=== PATIENT | female | born 1985 | race Caucasian/White ===

== ENCOUNTER → 2021-09-29 | Outpatient (CLI) | payer MEDICAID, OTHER ==
[2021-09-29 10:12] LABS: BASO % 0.3 % (0.0-1.0); EOS # 0.1 10^3/uL (0.0-0.5); EOS % 1.6 % (0.0-3.0); HEMATOCRIT 40.4 % (36.0-47.0); HEMOGLOBIN 13.2 g/dl (12.0-15.5); LYMPH # 1.9 10^3/uL (1.5-5.0); LYMPH % 21.4 % (24.0-44.0); MEAN CORPUSCULAR HEMOGLOBIN 30.3 pg (27.0-33.0); MEAN CORPUSCULAR HGB CONC 32.7 g/dl (32.0-36.5); MEAN CORPUSCULAR VOLUME 92.9 fl (80.0-96.0); MONO # 0.5 10^3/uL (0.0-0.8); MONO % 5.7 % (2.0-8.0); NEUTROPHILS # 6.2 10^3/uL (1.5-8.5); NEUTROPHILS % 70.5 % (36.0-66.0); PLATELET COUNT, AUTOMATED 258 10^3/uL (150-450); RED BLOOD COUNT 4.35 10^6/uL (4.00-5.40); WHITE BLOOD COUNT 8.8 10^3/uL (4.0-10.0)
[2021-09-29 10:48] LABS: ALBUMIN 3.6 GM/DL (3.2-5.2); ALT/SGPT 33 U/L (12-78); BILIRUBIN,TOTAL 0.3 MG/DL (0.2-1.0); BLOOD UREA NITROGEN 12 MG/DL (7-18); CALCIUM LEVEL 9.1 MG/DL (8.5-10.1); CARBON DIOXIDE LEVEL 25 MEQ/L (21-32); CHLORIDE LEVEL 108 MEQ/L (98-107); CHOLESTEROL LEVEL 167 MG/DL (<200); CHOLESTEROL RISK RATIO 4.638 (<5); CREATININE FOR GFR 0.73 MG/DL (0.55-1.30); GLOMERULAR FILTRATION RATE > 60.0 (>60); GLUCOSE, FASTING 79 MG/DL (70-100); HDL CHOLESTEROL 36 MG/DL (>40); LDL CHOLESTEROL 104 MG/DL (<100); NON-HDL-C 131 MG/DL; POTASSIUM SERUM 4.4 MEQ/L (3.5-5.1); SODIUM LEVEL 139 MEQ/L (136-145); THYROID STIMULATING HORMONE 0.779 uIU/ML (0.358-3.740); TOTAL PROTEIN 7.3 GM/DL (6.4-8.2); TRIGLYCERIDES LEVEL 135 MG/DL (<150)
== END ==
LOC: M LAB 09:13
PROVIDERS: ATTEND Physician Assistant
DX: E03.9 Hypothyroidism, unspecified (principal)

== ENCOUNTER 2022-07-06 09:19 | Emergency (ER) | payer OTHER ==
[~2022-07-06] VITALS: Ht 167.6 cm; Wt 83.7 kg
[2022-07-06] MEDS ORDERED: LEVO25TA5 (09:29)
[2022-07-06] MEDS ORDERED: BUPR300T92 (09:29)
[2022-07-06 10:33] LABS: RSV AMPLIFICATION NEGATIVE (NEGATIVE)
[2022-07-06] MEDS ORDERED: NS 1,000 ML IV ONE (11:55)
[2022-07-06 12:41] LABS: BASO % 0.4 % (0.0-1.0); EOS # 0.1 10^3/uL (0.0-0.5); EOS % 1.6 % (0.0-3.0); HEMATOCRIT 43.2 % (36.0-47.0); HEMOGLOBIN 14.1 g/dl (12.0-15.5); LYMPH # 1.9 10^3/uL (1.5-5.0); LYMPH % 26.3 % (24.0-44.0); MEAN CORPUSCULAR HEMOGLOBIN 31.4 pg (27.0-33.0); MEAN CORPUSCULAR HGB CONC 32.6 g/dl (32.0-36.5); MEAN CORPUSCULAR VOLUME 96.2 fl (80.0-96.0); MONO # 0.5 10^3/uL (0.0-0.8); MONO % 6.9 % (2.0-8.0); NEUTROPHILS # 4.8 10^3/uL (1.5-8.5); NEUTROPHILS % 64.4 % (36.0-66.0); PLATELET COUNT, AUTOMATED 236 10^3/uL (150-450); RED BLOOD COUNT 4.49 10^6/uL (4.00-5.40); WHITE BLOOD COUNT 7.4 10^3/uL (4.0-10.0)
[2022-07-06 13:13] LABS: ALT/SGPT 25 U/L (12-78); BILIRUBIN,DIRECT 0.2 MG/DL (0.0-0.2); BILIRUBIN,TOTAL 0.5 MG/DL (0.2-1.0); BLOOD UREA NITROGEN 10 MG/DL (7-18); CARBON DIOXIDE LEVEL 28 MEQ/L (21-32); CHLORIDE LEVEL 106 MEQ/L (98-107); CREATININE FOR GFR 0.76 MG/DL (0.55-1.30); GLOMERULAR FILTRATION RATE > 60.0 (>60); GLUCOSE, FASTING 84 MG/DL (70-100); POTASSIUM SERUM 3.8 MEQ/L (3.5-5.1); SODIUM LEVEL 138 MEQ/L (136-145); TOTAL PROTEIN 7.8 GM/DL (6.4-8.2)
[2022-07-06] MEDS ORDERED: KETOROLAC 30 MG/ML 1ML VIAL IV ONE (13:30)
[2022-07-06 13:39] LABS: HCG, SERUM QUALITATIVE NEGATIVE (NEGATIVE)
[2022-07-06] MEDS ORDERED: ISOVUE-370 76% 100ML VIAL As Ordered ONE (13:42)
[2022-07-06] MEDS ORDERED: KETO10TAB PO (14:26)
[2022-07-06] MEDS ORDERED: PHEN-372 PO (14:26)
[2022-07-06] MEDS ORDERED: NITR1CAP11 PO (14:26)
[2022-07-06 15:14] VITALS: BP 128/84
== END 2022-07-06 15:16 | disposition home or self-care (01) ==
LOC: M ED 09:19
DX: N39.0 Urinary tract infection, site not specified (principal); M54.50 Low back pain, unspecified; Z79.899 Other long term (current) drug therapy
CPT/HCPCS: 74177; 76775; 80048; 80076; 81000; 81015; 84703; 85025; 87088; 87186; 87631; 96361; 96374; 99284; J1885; Q9967

== ENCOUNTER → 2022-08-31 | Outpatient (REF) | payer OTHER ==
[~2022-08-31] MED LIST: BUPR300T92; KETO10TAB PO; LEVO25TA5; NITR1CAP11 PO; PHEN-372 PO
== END ==
LOC: M LAB REF 16:49
PROVIDERS: ATTEND Physician Assistant
DX: Z01.419 Encounter for gynecological examination (general) (routine) without abnormal findings (principal)

== ENCOUNTER 2023-01-30 22:48 | Emergency (ER) | payer MEDICAID, OTHER ==
[~2023-01-30] VITALS: Ht 167.6 cm; Wt 77.3 kg
[2023-01-30 22:49] VITALS: BP 149/82
== END 2023-01-31 00:32 | disposition left against medical advice (07) ==
LOC: M ED 22:48
DX: Z53.21 Procedure and treatment not carried out due to patient leaving prior to being seen by health care provider (principal)

== ENCOUNTER → 2023-02-01 | Outpatient (REF) | payer OTHER ==
[~2023-02-01] MED LIST changes: +AMOX500C PO; +CIPR-249 PO; +MEDR4TAB PO; +METR-265 PO; +OMEP40CA4 PO; +PENI500T PO
== END ==
LOC: M LAB REF 16:21
PROVIDERS: ATTEND Physician Assistant
DX: R10.32 Left lower quadrant pain (principal); R12 Heartburn; K59.00 Constipation, unspecified; Q63.2 Ectopic kidney

== ENCOUNTER 2023-02-02 01:26 | Emergency (ER) | payer OTHER ==
[~2023-02-02] VITALS: Ht 167.6 cm; Wt 81.6 kg
[~2023-02-02 01:26] MED LIST changes: -AMOX500C PO; -CIPR-249 PO; -MEDR4TAB PO; -METR-265 PO; -OMEP40CA4 PO; -PENI500T PO
[2023-02-02] MEDS ORDERED: MEDR4TAB PO (01:31)
[2023-02-02] MEDS ORDERED: AMOX500C PO ×2 (01:31)
[2023-02-02] MEDS ORDERED: NS 1,000 ML IV ONE (02:00)
[2023-02-02 02:18] LABS: BASO % 0.2 % (0.0-1.0); EOS # 0.1 10^3/uL (0.0-0.5); EOS % 0.9 % (0.0-3.0); HEMATOCRIT 41.2 % (36.0-47.0); LYMPH # 3.6 10^3/uL (1.5-5.0); MEAN CORPUSCULAR HEMOGLOBIN 31.3 pg (27.0-33.0); MONO # 0.6 10^3/uL (0.0-0.8); MONO % 4.9 % (2.0-8.0); NEUTROPHILS # 8.5 10^3/uL (1.5-8.5); NEUTROPHILS % 65.5 % (36.0-66.0); PLATELET COUNT, AUTOMATED 314 10^3/uL (150-450); RED BLOOD COUNT 4.48 10^6/uL (4.00-5.40)
[2023-02-02 02:39] LABS: LIPASE 34 U/L (12-53)
[2023-02-02 02:41] LABS: ALBUMIN 3.9 G/DL (3.2-5.2); ALKALINE PHOSPHATASE 67 U/L (46-116); ALT/SGPT 29 U/L (7.0-40); AST/SGOT 26 U/L (<34); BILIRUBIN,TOTAL 0.2 MG/DL (0.3-1.2); BLOOD UREA NITROGEN 10 MG/DL (9-23); CALCIUM LEVEL 8.6 MG/DL (8.5-10.1); CARBON DIOXIDE LEVEL 27 MMOL/L (20-31); CHLORIDE LEVEL 107 MMOL/L (98-107); CREATININE FOR GFR 0.75 MG/DL (0.55-1.30); GLOMERULAR FILTRATION RATE > 60.0 (>60); GLUCOSE, FASTING 85 MG/DL (60-100); SODIUM LEVEL 142 MMOL/L (136-145); TOTAL PROTEIN 7.3 G/DL (5.7-8.2)
[2023-02-02] MEDS ORDERED: ONDANSETRON 4MG 2ML VIAL IV ONE (03:00)
[2023-02-02] MEDS ORDERED: traMADol 50 MG TAB PO ONE (03:00)
[2023-02-02] MEDS ORDERED: GASTROGRAFIN SOLUTION 30ML As Ordered ONE (03:21)
[2023-02-02] MEDS ORDERED: ISOVUE-370 76% 100ML VIAL As Ordered ONE (03:28)
[2023-02-02] MEDS: GASTROGRAFIN SOLUTION 30ML PO SCH ×2 (03:35→04:10)
[2023-02-02] MEDS ORDERED: CIPROFLOXACIN 500MG TABLET PO ONE (07:10)
[2023-02-02] MEDS ORDERED: metroNIDAZOLE (FLAGYL) 500MG TABLET PO ONE (07:10)
[2023-02-02] MEDS ORDERED: CIPR-249 PO (07:14)
[2023-02-02] MEDS ORDERED: METR-265 PO (07:14)
[2023-02-02 07:27] VITALS: BP 134/80
== END 2023-02-02 07:34 | disposition home or self-care (01) ==
LOC: M ED 01:26
DX: K52.9 Noninfective gastroenteritis and colitis, unspecified (principal); F32.9 Major depressive disorder, single episode, unspecified; E03.9 Hypothyroidism, unspecified; Z79.890 Hormone replacement therapy; Z79.899 Other long term (current) drug therapy
CPT/HCPCS: 74177; 80053; 81001; 83690; 85025; 86850; 86900; 86901; 96374; 99284; J2405; Q9967

== ENCOUNTER 2023-02-07 11:10 | Emergency (ER) | payer OTHER, SELFPAY ==
[~2023-02-07] VITALS: Ht 167.6 cm; Wt 80.0 kg
[~2023-02-07 11:10] MED LIST changes: +AMOX500C PO; +CIPR-249 PO; +MEDR4TAB PO; +METR-265 PO
[2023-02-07] MEDS ORDERED: NS 1,000 ML IV ONE (11:45)
[2023-02-07] MEDS ORDERED: MORPHINE 4 MG/ML 1ML VIAL IV ONE ×2 (11:45→13:20)
[2023-02-07] MEDS ORDERED: PIPERACILLIN/TAZOBACTAM SOD 3.375 GM in D5W MINI-BAG PLUS 50 ML IV ONE (12:00)
[2023-02-07 12:24] LABS: BASO % 0.4 % (0.0-1.0); EOS # 0.2 10^3/uL (0.0-0.5); EOS % 1.4 % (0.0-3.0); HEMATOCRIT 42.1 % (36.0-47.0); HEMOGLOBIN 13.8 g/dl (12.0-15.5); LYMPH # 2.1 10^3/uL (1.5-5.0); LYMPH % 18.6 % (24.0-44.0); MEAN CORPUSCULAR HEMOGLOBIN 30.9 pg (27.0-33.0); MEAN CORPUSCULAR HGB CONC 32.8 g/dl (32.0-36.5); MEAN CORPUSCULAR VOLUME 94.2 fl (80.0-96.0); MONO # 0.6 10^3/uL (0.0-0.8); MONO % 4.9 % (2.0-8.0); NEUTROPHILS # 8.4 10^3/uL (1.5-8.5); NEUTROPHILS % 74.3 % (36.0-66.0); PLATELET COUNT, AUTOMATED 247 10^3/uL (150-450); RED BLOOD COUNT 4.47 10^6/uL (4.00-5.40); WHITE BLOOD COUNT 11.3 10^3/uL (4.0-10.0)
[2023-02-07 12:53] LABS: LIPASE 24 U/L (12-53)
[2023-02-07 12:55] LABS: ALBUMIN 3.8 G/DL (3.2-5.2); ALKALINE PHOSPHATASE 67 U/L (46-116); ALT/SGPT 35 U/L (7.0-40); AST/SGOT 20 U/L (<34); BILIRUBIN,DIRECT < 0.1 MG/DL (<0.4); BILIRUBIN,TOTAL 0.3 MG/DL (0.3-1.2)
[2023-02-07] MEDS ORDERED: ISOVUE-370 76% 100ML VIAL As Ordered ONE (13:14)
[2023-02-07] MEDS ORDERED: ONDANSETRON 4MG 2ML VIAL IV ONE (13:20)
[2023-02-07] MEDS ORDERED: PANTOPRAZOLE 40MG VIAL IV ONE (13:40)
[2023-02-07] MEDS ORDERED: GI COCKTAIL 50ML BTL(HYOSCYAMINE/MAALOX/LIDOCAINE VISCOUS)(1:3:1) PO ONE (16:15)
[2023-02-07 16:24] LABS: CK-MB VALUE MASS < 1.0 NG/ML (<3.6)
[2023-02-07 16:26] LABS: CPK CREATINE PHOSPHOKINASE 94 U/L (34-145); MB/CK RELATIVE INDEX 1.06 (< OR =4)
[2023-02-07] MEDS ORDERED: PENI500T PO (17:39)
[2023-02-07] MEDS ORDERED: OMEP40CA4 PO (17:39)
[2023-02-07 18:43] VITALS: BP 120/75
== END 2023-02-07 18:55 | disposition home or self-care (01) ==
LOC: M ED 11:10
DX: J02.0 Streptococcal pharyngitis (principal); K21.9 Gastro-esophageal reflux disease without esophagitis; R10.9 Unspecified abdominal pain; R11.0 Nausea; E03.9 Hypothyroidism, unspecified; F17.210 Nicotine dependence, cigarettes, uncomplicated; K59.00 Constipation, unspecified; Z79.899 Other long term (current) drug therapy
CPT/HCPCS: 71046; 71275; 74177; 76705; 76856; 80047; 80076; 81001; 82550; 82553; 83605; 83690; 84702; 85025; 87040; 87486; 87581; 87633; 87798; 87880; 93005; 93976; 96365; 96375; 96376; 99284; C9113; J2405; J2543; Q9967

== ENCOUNTER 2023-02-23 10:09 | Emergency (ER) | payer OTHER ==
[~2023-02-23] VITALS: Ht 167.6 cm; Wt 79.5 kg
[~2023-02-23 10:09] MED LIST changes: -BUPR300T92; +BUPR300T92 PO; -LEVO25TA5; +LEVO25TA5 PO; +OMEP40CA4 PO; +PENI500T PO
[2023-02-23 11:37] LABS: URINE PREG TEST NEGATIVE (NEGATIVE)
[2023-02-23] MEDS ORDERED: KETOROLAC 30 MG/ML 1ML VIAL IV ONE (12:10)
[2023-02-23 12:18] LABS: BASO % 0.4 % (0.0-1.0); EOS # 0.2 10^3/uL (0.0-0.5); EOS % 2.1 % (0.0-3.0); HEMATOCRIT 40.9 % (36.0-47.0); HEMOGLOBIN 13.7 g/dl (12.0-15.5); LYMPH # 2.1 10^3/uL (1.5-5.0); LYMPH % 24.3 % (24.0-44.0); MEAN CORPUSCULAR HEMOGLOBIN 31.1 pg (27.0-33.0); MEAN CORPUSCULAR HGB CONC 33.5 g/dl (32.0-36.5); MONO # 0.5 10^3/uL (0.0-0.8); NEUTROPHILS # 5.8 10^3/uL (1.5-8.5); PLATELET COUNT, AUTOMATED 265 10^3/uL (150-450); WHITE BLOOD COUNT 8.6 10^3/uL (4.0-10.0)
[2023-02-23 13:07] LABS: HCG, SERUM QUALITATIVE NEGATIVE (NEGATIVE)
[2023-02-23] MEDS ORDERED: METR0.7526 TOP (14:51)
[2023-02-23] MEDS ORDERED: MACR100C43 PO (14:51)
[2023-02-23 14:59] VITALS: BP 110/70
[2023-02-23 19:57] LABS: GC DNA AMPLIFICATION NEGATIVE (NEGATIVE)
== END 2023-02-23 15:09 | disposition home or self-care (01) ==
LOC: M ED 10:09
DX: N39.0 Urinary tract infection, site not specified (principal); N76.0 Acute vaginitis; E03.9 Hypothyroidism, unspecified; Z79.2 Long term (current) use of antibiotics; Z79.890 Hormone replacement therapy
CPT/HCPCS: 80047; 81001; 83605; 84703; 85025; 87210; 87661; 87810; 87850; 96374; 99283; J1885

== ENCOUNTER 2023-03-02 10:14 | Day surgery (SDC) | payer MEDICAID, OTHER ==
[~2023-03-02] VITALS: Ht 167.6 cm; Wt 80.2 kg
[~2023-03-02 10:14] MED LIST changes: +MACR100C43 PO; +METR0.7526 TOP; +NS 1,000 ML IV ONE
[2023-03-02] MEDS ORDERED: fentaNYL 100 MCG/2 ML INJECTION As Ordered ONE ×2 (11:30→11:44)
[2023-03-02] MEDS ORDERED: ONDANSETRON 4MG 2ML VIAL As Ordered ONE (11:31)
[2023-03-02] MEDS ORDERED: propofoL 200 MG/20 ML VIAL As Ordered ONE (11:55)
[2023-03-02] MEDS ORDERED: LIDOCAINE 2% 100MG/5ML SDV (FOR ANES.) As Ordered ONE (11:55)
[2023-03-02 13:10] VITALS: BP 134/63
== END 2023-03-02 13:21 | disposition home or self-care (01) ==
LOC: M OPP 10:14
PROVIDERS: ATTEND Surgery
DX: R10.32 Left lower quadrant pain (principal); K59.00 Constipation, unspecified; K29.50 Unspecified chronic gastritis without bleeding; K30 Functional dyspepsia; Z79.1 Long term (current) use of non-steroidal anti-inflammatories (NSAID); Z79.899 Other long term (current) drug therapy
CPT/HCPCS: 43239; 45378; 88305; J2405; J3010

== ENCOUNTER → 2023-05-04 | Outpatient (CLI) | payer MEDICAID, OTHER ==
[~2023-05-04] MED LIST changes: -NS 1,000 ML IV ONE
== END ==
LOC: M RAD 15:14
PROVIDERS: ATTEND Physician Assistant
DX: M25.541 Pain in joints of right hand (principal)

== ENCOUNTER → 2023-08-10 | Outpatient (CLI) | payer OTHER | LOC: M WHC 08:27 | PROVIDERS: ATTEND Physician Assistant Medical | DX: Z30.431 Encounter for routine checking of intrauterine contraceptive device (principal) ==

== ENCOUNTER → 2024-01-24 | Outpatient (CLI) | payer OTHER | LOC: M RAD 13:15 | PROVIDERS: ATTEND Physician Assistant Medical | DX: Z30.431 Encounter for routine checking of intrauterine contraceptive device (principal) ==

== ENCOUNTER → 2024-03-22 | Outpatient (CLI) | payer OTHER ==
[~2024-03-22] MED LIST changes: +BUPR-597 PO; -BUPR300T92 PO
[2024-03-22 10:46] LABS: BASO % 0.3 % (0.0-1.0); EOS # 0.2 10^3/uL (0.0-0.5); EOS % 3.1 % (0.0-3.0); HEMOGLOBIN 13.2 g/dl (12.0-15.5); LYMPH # 1.9 10^3/uL (1.5-5.0); LYMPH % 28.6 % (24.0-44.0); MEAN CORPUSCULAR HEMOGLOBIN 31.5 pg (27.0-33.0); MEAN CORPUSCULAR HGB CONC 33.8 g/dl (32.0-36.5); MEAN CORPUSCULAR VOLUME 93.1 fl (80.0-96.0); MONO # 0.4 10^3/uL (0.0-0.8); MONO % 5.5 % (2.0-8.0); NEUTROPHILS # 4.2 10^3/uL (1.5-8.5); NEUTROPHILS % 62.2 % (36.0-66.0); PLATELET COUNT, AUTOMATED 243 10^3/uL (150-450); RED BLOOD COUNT 4.19 10^6/uL (4.00-5.40); WHITE BLOOD COUNT 6.8 10^3/uL (4.0-10.0)
[2024-03-22 11:18] LABS: ALBUMIN 3.9 G/DL (3.2-5.2); ALKALINE PHOSPHATASE 61 U/L (46-116); ALT/SGPT 31 U/L (7.0-40); AST/SGOT 19 U/L (<34); BILIRUBIN,TOTAL 0.3 MG/DL (0.3-1.2); BLOOD UREA NITROGEN 15 MG/DL (9-23); CARBON DIOXIDE LEVEL 26 MMOL/L (20-31); CHLORIDE LEVEL 107 MMOL/L (98-107); CHOLESTEROL LEVEL 157 MG/DL (<200); CHOLESTEROL RISK RATIO 4.86 (<5); CREATININE FOR GFR 0.64 MG/DL (0.55-1.30); GLOMERULAR FILTRATION RATE > 60.0 (>58); GLUCOSE, FASTING 71 MG/DL (60-100); HDL CHOLESTEROL 32.3 MG/DL (>40); IRON (FE) 102 UG/DL (50-170); LDL CHOLESTEROL 75.5 MG/DL (<100); NON-HDL-C 124.7 MG/DL; PERCENT SATURATION 31.2 % (13.2-45.0); POTASSIUM SERUM 4.3 MMOL/L (3.5-5.1); SODIUM LEVEL 139 MMOL/L (136-145); TOTAL IRON BINDING CAPACITY 327 UG/DL (250-425); TOTAL PROTEIN 7.1 G/DL (5.7-8.2); TRIGLYCERIDES LEVEL 246 MG/DL (<150)
[2024-03-22 11:19] LABS: THYROID STIMULATING HORMONE 2.154 uIU/ML (0.55-4.78); TOTAL 25(OH) VITAMIN D 27.2 NG/ML (20.0-100.0)
[2024-03-22 11:20] LABS: FOLATE 13.3 NG/ML (>5.4); VITAMIN B12 LEVEL 413 PG/ML (211-911)
== END ==
LOC: M LAB 10:04
PROVIDERS: ATTEND Physician Assistant
DX: E03.9 Hypothyroidism, unspecified (principal); R53.83 Other fatigue; R20.2 Paresthesia of skin

== ENCOUNTER → 2024-04-23 | Outpatient (CLI) | payer OTHER ==
[~2024-04-23] MED LIST changes: +NITR100C3 PO; -NITR1CAP11 PO
== END ==
LOC: M WHC 07:48
PROVIDERS: ATTEND Physician Assistant
DX: N63.21 Unspecified lump in the left breast, upper outer quadrant (principal)

== ENCOUNTER → 2024-05-23 | Outpatient (CLI) | payer OTHER | LOC: M RAD 17:11 | PROVIDERS: ATTEND Physician Assistant | DX: M22.2X2 Patellofemoral disorders, left knee (principal) ==

== ENCOUNTER → 2024-07-04 | Outpatient (CLI) | payer OTHER | LOC: M RAD 07:12 | PROVIDERS: ATTEND Nurse Practitioner Family | DX: M25.562 Pain in left knee (principal) ==

== ENCOUNTER 2024-08-14 11:05 | Outpatient (RCR) | payer OTHER | END 2024-08-28 | LOC: M PT 11:05 | PROVIDERS: ATTEND Physician Assistant | DX: M25.562 Pain in left knee (principal) ==

== ENCOUNTER 2024-10-15 08:10 | Emergency (ER) | payer OTHER ==
[~2024-10-15] VITALS: Ht 167.6 cm; Wt 77.3 kg
[2024-10-15] MEDS ORDERED: PHEN30CA21 (08:30)
[2024-10-15] MEDS: KETOROLAC 30 MG/ML 1ML VIAL IV ONE (09:09)
[2024-10-15] MEDS: METOCLOPRAMIDE INJ 10MG/2ML VIAL IV ONE (09:09)
[2024-10-15] MEDS: diphenhydrAMINE 50MG/ML VIAL IV ONE (09:10)
[2024-10-15] MEDS ORDERED: IMIT50TA PO (11:24)
[2024-10-15 11:30] VITALS: BP 99/55; TEMP 97.7; O2SAT 96
== END 2024-10-15 11:45 | disposition home or self-care (01) ==
LOC: M ED 08:10 → EDBD 08:10 → M ED 11:45
DX: G43.909 Migraine, unspecified, not intractable, without status migrainosus (principal); T50.5X5A Adverse effect of appetite depressants, initial encounter; F10.10 Alcohol abuse, uncomplicated; E66.9 Obesity, unspecified; F41.9 Anxiety disorder, unspecified; F32.A Depression, unspecified; E03.9 Hypothyroidism, unspecified; Z79.899 Other long term (current) drug therapy
CPT/HCPCS: 70450; 96374; 96375; 99284; J1200; J1885; J2765

== ENCOUNTER → 2025-01-14 | Outpatient (CLI) | payer OTHER ==
[~2025-01-14] MED LIST changes: +IMIT50TA PO; +PHEN30CA21
== END ==
LOC: M WHC 09:01
PROVIDERS: ATTEND Physician Assistant
DX: R92.8 Other abnormal and inconclusive findings on diagnostic imaging of breast (principal)

== ENCOUNTER 2025-01-23 12:45 | Outpatient (RCR) | payer OTHER | END 2025-01-26 | LOC: M PT 12:45 | DX: M25.562 Pain in left knee (principal) ==

== ENCOUNTER → 2025-05-04 | Outpatient (CLI) | payer MEDICAID ==
[~2025-05-04] MED LIST changes: -BUPR-597 PO; +BUPR-766 PO
[2025-05-04 11:34] LABS: C REACTIVE PROTEIN QUANTITATIV 1.75 MG/DL (<1.0); RHEUMATOID FACTOR QUANT < 3.5 IU/ML (<14)
[2025-05-07 20:10] LABS: LYME TOTAL ANTIBODY CIA <= 0.90 Index (<=0.90)
== END ==
LOC: M LAB 09:55
PROVIDERS: ATTEND Nurse Practitioner Family
DX: M25.562 Pain in left knee (principal)

== ENCOUNTER → 2025-06-08 | Outpatient (CLI) | payer MEDICAID | LOC: M SOG 07:02 | PROVIDERS: ATTEND Physician Assistant | DX: M25.532 Pain in left wrist (principal) ==

== ENCOUNTER → 2025-07-10 | Outpatient (CLI) | payer OTHER ==
[~2025-07-10] MED LIST changes: +PROHANCE 279.3MG/ML 15ML VIAL ONE
== END ==
LOC: M PLAIMG 12:59
PROVIDERS: ATTEND Physician Assistant
DX: R22.32 Localized swelling, mass and lump, left upper limb (principal)
CPT/HCPCS: 73223; A9576